=== PATIENT | male | born 1935 | race African-American/Black ===

== ENCOUNTER 2019-04-20 02:12 | Emergency (ER) | payer OTHER, MEDICARE ==
[~2019-04-20] VITALS: Ht 185.4 cm; Wt 86.7 kg
[~2019-04-20 02:12] MED LIST: ADULT LOW DOSE81 MG PO; ADVAIR 100-501 EACH INH; ALLOPURINOL 10100 M1 PO; AMLODIPINE BESY10 MG PO; ARANESP100 MCG/0. SQ; ASPIRIN EC81 M1; ASPIRIN EC81 M1 PO; ASPIRIN325 PO; ASPIRIN81 M2 PO; CALCITRIOL0.25 MCG PO; CARVEDILOL12.5 MG PO; CARVEDILOL25 MG PO; CLONIDINE HCL0.3 M2 PO; COLCHICINE 0.60.6 M2 PO; CRESTOR20 MG PO; DARVOCET-N 1001 EACH PO; DIOVAN HCT 3201 EAC1 PO; EXFORGE PO; FUROSEMIDE 80 M80 M1 PO; HYDRALAZINE 5050 M1 PO; INDOMETHACIN 2525 MG PO; LABETALOL PO; LAMICTAL 25 MG25 M1 PO; LANTUS SUBQ; LOSARTAN-HCTZ1 EAC1 PO; LOSARTAN-HCTZ1 EAC3 PO; MINOXIDIL PO; MINOXIDIL2.5 MG PO; NASONEX17 GM NS; NEPHROCAPS SOFT1 CAP PO; NORVASC10 MG PO; NOVOLOG100 UNIT/1 SUBQ; PERCOCET PO; PROAIR HFA8.5 GM INH; PROTONIX40 M2 PO; RENVELA800 MG PO; SPIRIVA INH; SPIRONOLACTONE25 M1 PO; SYMBICORT160 MCG/4. INH; TRANDATE 200 M200 M1 PO; ZPAK PO
[2019-04-20 03:06] LABS: ABSOLUTE EOSINOPHILS 0.1 thou/uL (0.0-0.7); ABSOLUTE LYMPHOCYTES 0.8 thou/uL (0.8-5.3); ABSOLUTE MONOCYTES 0.4 thou/uL (0.0-1.2); ABSOLUTE NEUTROPHILS 4.9 thou/uL (1.6-8.1); BASOPHILS 0.6 %; EOSINOPHILS 1.3 %; HEMATOCRIT 38.3 % (42.0-52.0); HEMOGLOBIN 12.5 gm/dL (14.0-18.0); LYMPHOCYTES 12.4 %; MCH 28.5 pg (26.0-34.0); MCHC 32.5 g/dL (28.0-37.0); MCV 87.6 fL (80.0-100.0); MONOCYTES 7.1 %; MPV 7.4 fl. (7.2-11.1); NUCLEATED RBCS 0 /100WBC; PLATELET COUNT* 232 thou/uL (150-400); POLYS 78.6 %; RBC 4.37 mil/uL (4.50-6.00); RDW-CV 15.4 % (10.5-14.5); WBC 6.2 thou/uL (4.0-11.0)
[2019-04-20 03:11] LABS: CALCIUM 8.3 mg/dL (8.5-10.1); CREATININE 6.2 mg/dL (0.6-1.3)
[2019-04-20 03:21] LABS: TOTAL BILIRUBIN 0.5 mg/dL (<0.1-1.0)
[2019-04-20 03:25] LABS: POTASSIUM 2.9 mmol/L (3.5-5.1)
[2019-04-20 04:23] VITALS: BP 155/76
--- NOTE | 2019-04-20 14:20 | EKG ---
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: [place] : [id number] Requested By: Rickey Porras Order Number: [id number] MD: Bolivar Mosqueda Measurements Intervals [place] Rate: 61 P: 68 OK: 46 QRS: -15 QRSD: 107 T: 50 QT: 517 QTc: 521 Interpretive Statements Sinus rhythm Short OK interval Borderline left axis deviation Abnormal R-wave progression, early transition Prolonged QT interval Compared to ECG 05/02/2012 22:46:58 no change Electronically Signed On 04-20-2019 14:20:03 SENIOR UI DESIGNER by Bolivar Mosqueda [email or web address] <ELECTRONICALLY SIGNED> By: Bolivar Mosqueda MD, [facility] 04/20/19 1420 0216 0216 [facility], [facility] /EPI
== END 2019-04-20 04:23 | disposition home or self-care (01) ==
LOC: M.ERS 02:12
PROVIDERS: Family Medicine
DX: E11.649 Type 2 diabetes mellitus with hypoglycemia without coma (principal); I10 Essential (primary) hypertension; Z79.4 Long term (current) use of insulin